=== PATIENT | female | born 1950 | race Caucasian/White ===

== ENCOUNTER 2023-09-26 07:00 | Outpatient (OUT) | payer MEDICARE, SELFPAY ==
[2023-09-26 07:31] LABS: Basophils Percent Auto 0.5 % (0.2-2.0); Eosinophils Absolute Auto 0.1 10^3/uL (0.0-0.7); Eosinophils Percent Auto 1.5 % (0.9-7.0); Hematocrit 42.2 % (36.0-48.0); Hemoglobin 13.8 g/dL (12.0-16.0); Immature Granulocytes Abs Auto 0.02 10^3/uL (0.00-0.03); Immature Granulocytes Pct Auto 0.3 % (0.0-0.5); Lymphocytes Absolute Auto 2.6 10^3/uL (1.2-3.8); Lymphocytes Percent Auto 34.3 % (20.5-60.0); Mean Corpuscular HGB Conc 32.7 g/dL (29.9-35.2); Mean Corpuscular Hemoglobin 29.9 pg (26.7-34.0); Mean Corpuscular Volume 91.3 fL (81.0-99.0); Mean Platelet Volume 8.7 fL (9.5-13.5); Monocytes Absolute Auto 0.5 10^3/uL (0.3-0.8); Monocytes Percent Auto 7.1 % (1.7-12.0); Neutrophils Absolute Auto 4.3 10^3/uL (1.4-6.5); Neutrophils Percent Auto 56.3 % (43.0-75.0); Platelet Count 219 10^3/uL (150-450); Red Blood Count 4.62 10^6/uL (4.20-5.40); Red Cell Distribution Width 13.4 % (11.0-15.0); White Blood Count 7.6 10^3/uL (4.0-11.0)
[2023-09-26 08:07] LABS: Estimated Average Glucose 123 mg/dL; Glycohemoglobin A1C 5.9 % (4.5-6.2)
[2023-09-26 08:24] LABS: Alanine Aminotransferase 34 U/L (14-59); Albumin Globulin Ratio 0.9; Albumin Level 3.7 g/dL (3.4-5.0); Alkaline Phosphatase 80 U/L (46-116); Anion Gap 16.5; Aspartate Amino Transferase 29 U/L (15-37); BUN Creatinine Ratio 20.2; Bilirubin Total 0.8 mg/dL (0.2-1.0); Calcium 9.4 mg/dL (8.5-10.1); Carbon Dioxide 26.4 mmol/L (21.0-32.0); Chloride 102 mmol/L (98-107); Cholesterol 178 mg/dL (<=200); Estimated GFR (African America >60 (>=60); Estimated GFR (Non-African Ame >60 (>=60); Free T3 2.62 pg/mL (2.18-3.98); Glucose 81 mg/dL (74-106); HDL Cholesterol 90 mg/dL (40-60); Potassium 3.9 mmol/L (3.5-5.1); Sodium 141 mmol/L (136-145); Thyroid Stimulating Hormone 3.683 uIU/mL (0.358-3.740); Total Protein 7.7 g/dL (6.4-8.2); Triglycerides 49 mg/dL (<=150); VLDL CHOLESTEROL 9.8 mg/dL
== END 2023-09-26 07:01 | disposition home or self-care (01) ==
LOC: LAB 07:00
PROVIDERS: PCP Family Medicine; Visit Provider Family Medicine
DX: E03.0 Congenital hypothyroidism with diffuse goiter (principal); F41.9 Anxiety disorder, unspecified; E78.5 Hyperlipidemia, unspecified; R73.09 Other abnormal glucose; Z12.12 Encounter for screening for malignant neoplasm of rectum; D64.9 Anemia, unspecified; E55.9 Vitamin D deficiency, unspecified
CPT/HCPCS: 36415; 80053; 80061; 82306; 83036; 83540; 84436; 84443; 84481; 85025

== ENCOUNTER 2024-10-06 08:26 | Outpatient (OUT) | payer MEDICARE, SELFPAY ==
[2024-10-06 08:57] LABS: Basophils Percent Auto 0.3 % (0.2-2.0); Eosinophils Absolute Auto 0.1 10^3/uL (0.0-0.7); Eosinophils Percent Auto 1.5 % (0.9-7.0); Hematocrit 43.8 % (36.0-48.0); Hemoglobin 14.6 g/dL (12.0-16.0); Immature Granulocytes Abs Auto 0.02 10^3/uL (0.00-0.03); Immature Granulocytes Pct Auto 0.3 % (0.0-0.5); Lymphocytes Absolute Auto 2.7 10^3/uL (1.2-3.8); Lymphocytes Percent Auto 39.9 % (20.5-60.0); Mean Corpuscular HGB Conc 33.3 g/dL (29.9-35.2); Mean Corpuscular Hemoglobin 30.1 pg (26.7-34.0); Mean Corpuscular Volume 90.3 fL (81.0-99.0); Mean Platelet Volume 8.7 fL (9.5-13.5); Monocytes Absolute Auto 0.4 10^3/uL (0.3-0.8); Monocytes Percent Auto 6.4 % (1.7-12.0); Neutrophils Absolute Auto 3.5 10^3/uL (1.4-6.5); Neutrophils Percent Auto 51.6 % (43.0-75.0); Platelet Count 212 10^3/uL (150-450); Red Blood Count 4.85 10^6/uL (4.20-5.40); Red Cell Distribution Width 12.9 % (11.0-15.0); White Blood Count 6.7 10^3/uL (4.0-11.0)
[2024-10-06 09:05] LABS: Estimated Average Glucose 120 mg/dL; Glycohemoglobin A1C 5.8 % (4.5-6.2)
[2024-10-06 09:40] LABS: Alanine Aminotransferase 29 U/L (14-59); Albumin Globulin Ratio 0.9; Albumin Level 3.6 g/dL (3.4-5.0); Alkaline Phosphatase 79 U/L (46-116); Anion Gap 12.9; Aspartate Amino Transferase 26 U/L (15-37); BUN Creatinine Ratio 15.9; Bilirubin Total 0.7 mg/dL (0.2-1.0); Calcium 9.7 mg/dL (8.5-10.1); Carbon Dioxide 28.2 mmol/L (21.0-32.0); Chloride 103 mmol/L (98-107); Chol HDL Ratio 2.1; Cholesterol 184 mg/dL (<=200); Estimated GFR (African America >60 (>=60 mL/min/1.73m^2); Estimated GFR (Non-African Ame >60 (>=60 mL/min/1.73m^2); Free T3 2.41 pg/mL (2.18-3.98); Globulin 3.8 g/dL; Glucose 90 mg/dL (74-106); HDL Cholesterol 86 mg/dL (40-60); Potassium 4.1 mmol/L (3.5-5.1); Sodium 140 mmol/L (136-145); Thyroid Stimulating Hormone 3.633 uIU/mL (0.358-3.740); Total Protein 7.4 g/dL (6.4-8.2); Triglycerides 113 mg/dL (<=150); VLDL CHOLESTEROL 22.6 mg/dL
== END 2024-10-06 08:27 | disposition home or self-care (01) ==
LOC: LAB 08:26
PROVIDERS: PCP Family Medicine; Visit Provider Family Medicine
DX: R53.83 Other fatigue (principal); R03.0 Elevated blood-pressure reading, without diagnosis of hypertension; F41.9 Anxiety disorder, unspecified; E78.5 Hyperlipidemia, unspecified; R73.09 Other abnormal glucose; I10 Essential (primary) hypertension; Z12.12 Encounter for screening for malignant neoplasm of rectum; E03.9 Hypothyroidism, unspecified
CPT/HCPCS: 36415; 80053; 80061; 83036; 84436; 84443; 84481; 85025; G0103

== ENCOUNTER 2025-09-30 07:53 | Outpatient (OUT) | payer MEDICARE, SELFPAY ==
--- OUTSIDE RECORDS SUMMARY | 2025-09-30 07:58 | XMS_ITS | CCD ---
Author Organization [facility] Care Team Providers Care Bar Host/Hostess Name Role Phone DR JORGE OQUENDO Attending Unavailable DR JORGE OQUENDO Consulting Unavailable DR JORGE OQUENDO Primary Care Unavailable DR JORGE OQUENDO Admitting Unavailable Problems Problem ClassificationProblemDateDocumented DateEpisodic/ChronicDeficiency and other anemia (1 source)Anemia, unspecified; Translations: [ANEMIA UNSPECIFIED]Onset: 21-39-9438LmwsxnxiAzpaxqhg mellitus without complication (1 source)Other abnormal glucose; Translations: [OTHER ABNORMAL GLUCOSE]Onset: 38-62-4571ZzxskyfpRkaaeyjkj of lipid metabolism (2 sources)Elevated Lipoprotein(a); Translations: [Hyperlipidemia, unspecified] Onset: 71-80-4807YeckhjyHkcvsyign hypertension (4 sources)Essential (primary) hypertension; Translations: [ESSENTIAL PRIMARY HYPERTENSION]Onset: 42-24-6774GytkewwPqsyzuv and fatigue (1 source)Other fatigue; Translations: [OTHER FATIGUE]Onset: 27-81-1941Akujejbn Other screening for suspected conditions (not mental disorders or infectious disease) (1 source)Encounter for screening for malignant neoplasm of rectum; Translations: [ENC SCREEN MALIG NEOPLASM RECTUM]Onset: 55-49-0627Vqamyfty Results Test NameValueInterpretationReference RangeFacilityINSULINon 87-06-2139Zzoiuvf 6.8 uIU/mLNormal2.6-24.9The [facility] HospitalComment on above:Performed By: #### INSULIN #### [facility] [address] [address] [address] Angel Shea AUTO DIFFon [id number] #0.0 103/ulNormal0.0-0.1The [facility] HospitalComment on above:Performed By: #### CBC #### [facility] [address] [address] [address] Angel SalomonBasophils/100 WBC (Bld)0.3 %Normal0.2-2.0The [facility] Comment on above:Performed By: #### CBC #### [facility] [address] [place] [address] Dr. Angel Georges #0.1 103/ulNormal0.0-0.7The [facility] HospitalComment on above: Performed By: #### CBC #### [facility] [address] [place] [address] Dr. Angel Garciaosinophils/100 WBC (Bld)1.6 %Normal0.9-7.0The [facility] Comment on above:Performed By: #### CBC #### [facility] [address] [place] [address] Dr. Angel Garciarythrocyte distribution width (RBC) [Ratio]12.8 %Pqlfaf98.0-15.0 The [facility] HospitalComment on above:Performed By: #### CBC #### [facility] [address] [place] [address] Dr. Angel SalomonHematocrit (Bld) [Volume fraction]40.7 %Rgnhcw82.0-48.0The [facility] HospitalComment on above:Performed By: #### CBC #### [facility] [address] [place] [address] Dr. Angel SalomonHemoglobin (Bld) [Mass/Vol]13.7 g/oIHnilht37.0-16.0The [facility] HospitalComment on above:Performed By: #### CBC #### [facility] [address] [place] [address] Dr. Angel Steven #0.01 10e3/ulNormal0.00-0.03The [facility] HospitalComment on above:Performed By: #### CBC #### [facility] [address] [place] [address] Dr. Angel Steven %0.1 %Normal0.0-0.5The [facility] HospitalComment on above: Performed By: #### CBC #### [facility] [address] [address] [address] Angel Pickard #2.9 103/ulNormal1.2-3.8The [facility] HospitalComment on above:Performed By: #### CBC #### [facility] [address] [place] [address] Dr. Angel Reidhocytes/100 WBC (Bld)43.7 %Agkrml20.5-60.0The [facility] HospitalComment on above:Performed By: #### CBC #### [facility] [address] [place] [address] Dr. Angel Us DIFF REQNONormalThe [facility]S HospitalComment on above: Performed By: #### CBC #### [facility] [address] [place] [address] Dr. Angel Payne (RBC) [Entitic mass]30.4 jmLoiwoy00.7-34.0The [facility] HospitalComment on above:Performed By: #### CBC #### [facility] [address] [place] [address] Dr. Angel Gramajo (RBC) [Mass/Vol]33.7 g/jMCsffqi32.9-35.2The [facility] Hospitalment on above:Performed By: #### CBC #### [facility] [address] [place] [address] Dr. Angel Gramajo (RBC) [Entitic vol]90.4 aHVmwzje71.0-99.0The [facility] HospitalComment on above:Performed By: #### CBC #### [facility] [address] [place] [address] Dr. Angel Friend #0.4 103/ulNormal0.3-0.8The [facility] HospitalComment on above:Performed By: #### CBC #### [facility] [address] [place] [address] Dr. Angel Covarrubiasocytes/100 WBC (Bld)6.1 %Normal1.7-12.0The [facility] Comment on above:Performed By: #### CBC #### [facility] [address] [address] [address] Angel Oliveira #3.2 103/ulNormal1.4-6.5The [facility] HospitalComment on above:Performed By: #### CBC #### [facility] [address] [address] [address] Angel Dumontutrophils/100 WBC (Bld)48.2 %Kvanvd81.0-75.0The [facility] HospitalComment on above:Performed By: #### CBC #### [facility] [address] [address] [address] Angel Mccordlet mean volume (Bld) [Entitic vol]8.6 fLCritically low 9.5-13.5The [facility] HospitalComment on above:Performed By: #### CBC #### [facility] [address] [address] [address] Angel FabianT206 103/neIqofso442-659Alh [facility] HospitalComment on above: Performed By: #### CBC #### [facility] [address] [address] [address] Angel SalomonRBC4.50 106/ulNormal4.20-5.40The [facility] Hospitalment on above:Performed By: #### CBC #### [facility] [address] [address] [address] Angel SalomonWBC6.7 103/ulNormal4.0-11.0The [facility] HospitalComment on above: Performed By: #### CBC #### [facility] [address] [place] [address] Dr. Angel Damian THYROXINE INDEX T7on 95-08-4619KKG0.34Imyvtc8.30-4.50The [facility] HospitalComment on above:Performed By: #### T7, CMP, LIPID, TSH #### [facility] [address] [address] [address] Angel SalomonT3U31.0 %Uoothx06.0-39.0The [facility] HospitalComment on above: Performed By: #### T7, CMP, LIPID, TSH #### [facility] [address] [address] [address] Angel SalomonT4 [Mass/Vol]7.90 ug/dLNormal4.80-13.90The [facility] Comment on above:Performed By: #### T7, CMP, LIPID, TSH #### [facility] [address] [place] [address] Dr. Angel SalomonGLYCOHEMOGLOBIN A1Con 81-41-1356GIF RECOMMENDATIONSEE BELOWMercy Health Allen HospitalComment on above:Result Comment: ADA RECOMMENDED LIMIT 4.0 - 6.0 ADA THERAPEUTIC TARGET < 7.0 ACTION SUGGESTED > 7.0Performed By: #### A1C #### [facility] [address] [place] [address] Dr. Angel SalomonGlucose [Mass/Vol]131 mg/dLNoPaulding County HospitalComment on above:Performed By: #### A1C #### [facility] [address] [place] [address] Dr. Angel SalomonHbA1c (Bld) [Mass fraction]6.2 %Normal4.5-6.2The [facility] HospitalComment on above:Performed By: #### A1C #### [facility] [address] [place] [address] Dr. Angel Gallagher 60-10-8234Bwqu [Mass/Vol]126.0 ug/mEQdaeba20.0-170.0The [facility] HospitalComment on above:Performed By: #### IRON #### [facility] [address] [place] [address] Dr. Angel SalomonLIPID PROFILEon [id number]-HDL RATIO NORMSEE [facility] HospitalCommymichigan medical center alma on above:Result Comment: 3.3 - 4.4 LOW RISK 4.4 - 7.1 AVERAGE RISK 7.1 - 11.0 MODERATE RISK >11.0 HIGH RISKPerformed By: #### T7, CMP, LIPID, TSH #### [facility] [address] [address] [address] Angel Jimenezesterol [Mass/Vol]167 mg/dLNormal<=200[facility] Comment on above:Performed By: #### T7, CMP, LIPID, TSH #### [facility] [address] [address] [address] Angel Jimenezesterol in HDL [Mass/Vol]79 mg/dLCritically zydf70-54Hae [facility] HospitalComment on above:Performed By: #### T7, CMP, LIPID, TSH #### [facility] [address] [address] [address] Angel Jimenezesterol in LDL [Mass/Vol]65.0 mg/dLNoPaulding County HospitalComment on above:Performed By: #### T7, CMP, LIPID, TSH #### [facility] [address] [place] [address] Dr. Angel Ayon.total/Cholesterol in HDL [Mass ratio]2.1 {ratio} NormalThe [facility]'S HospitalComment on above:Performed By: #### T7, CMP, LIPID, TSH #### [facility] [address] [address] [address] Angel Granados NORMAL> or = 60 mg/dl - LOW CARDIOVASCULAR RISK <40 mg/dl - HIGH CARDIOVASCULAR RISKSelect Medical Cleveland Clinic Rehabilitation Hospital, AvonComment on above:Performed By: #### T7, CMP, LIPID, TSH #### [facility] [address] [place] [address] Dr. Angel SalomonLDL CALC NORMALSEE BELOWNoPaulding County HospitalComment on above:Result Comment: <100 mg/dl OPTIMAL 100 - 129 mg/dl NEAR OR ABOVE OPTIMAL 130 - 159 mg/dl BORDERLINE HIGH 160 - 189 mg/dl HIGH >190 mg/dl VERY HIGH Performed By: #### T7, CMP, LIPID, TSH #### [facility] [address] [place] [address] Dr. Angel SalomonTriglyceride [Mass/Vol]115 mg/dLNormal<=150[facility] Comment on above:Performed By: #### T7, CMP, LIPID, TSH #### [facility] [address] [address] [address] Angel SalomonVLDL CALC23.0 mg/dLNormalThe [facility]S HospitalComment on above: Performed By: #### T7, CMP, LIPID, TSH #### [facility] [address] [address] [address] Angel Merrill 14(COMP METB)on 70-78-6068Xihzjrc [Mass/Vol]3.6 g/dLNormal 3.4-5.0The [facility] HospitalComment on above:Performed By: #### T7, CMP, LIPID, TSH #### [facility] [address] [address] [address] Angel SalomonAlbumin/Globulin [Mass ratio]0.9 {ratio}NormalThe [facility]'S HospitalComment on above:Performed By: #### T7, CMP, LIPID, TSH #### [facility] [address] [place] [address] Dr. Angel Martel [Catalytic activity/Vol]82 U/TCtphko66-454Rnq [facility] HospitalComment on above:Performed By: #### T7, CMP, LIPID, TSH #### [facility] [address] [place] [address] Dr. Angel Sanchez [Catalytic activity/Vol]43 U/EWlvlke25-24Vls [facility] HospitalComment on above:Performed By: #### T7, CMP, LIPID, TSH #### [facility] [address] [place] [address] Dr. Angel Cai gap [Moles/Vol]11.4 mmol/LNormalThe [facility] on above:Performed By: #### T7, CMP, LIPID, TSH #### [facility] [address] [place] [address] Dr. Angel Soriano [Catalytic activity/Vol]31 U/LFjzafz25-61Bcv [facility] Hospitalment on above:Performed By: #### T7, CMP, LIPID, TSH #### [facility] [address] [place] [address] Dr. Yilan ChangBilirubin [Mass/Vol]0.5 mg/dLNormal0.2-1.0The [facility] Comment on above:Performed By: #### T7, CMP, LIPID, TSH #### [facility] [address] [address] [address] Angel SalomonCalcium [Mass/Vol]9.5 mg/dLNormal8.5-10.1The [facility] Comment on above:Performed By: #### T7, CMP, LIPID, TSH #### [facility] [address] [place] [address] Dr. Angel SalomonChloride [Moles/Vol]103 mmol/UTjuqqv92-020VvcSelect Medical Specialty [facility] Comment on above:Performed By: #### T7, CMP, LIPID, TSH #### [facility] [address] [place] [address] Dr. Angel SalomonCO2 [Moles/Vol]29.4 mmol/FYqdzzm67.0-32.0The [facility] Comment on above:Performed By: #### T7, CMP, LIPID, TSH #### [facility] [address] [place] [address] Dr. Angel SalomonCreatinine [Mass/Vol]0.75 mg/dLNormal0.55-1.02The [facility] HospitalComment on above:Performed By: #### T7, CMP, LIPID, TSH #### [facility] [address] [place] [address] Dr. Angel GarciaGFR-AF SENEGALESE>60Normal>=60The [facility] HospitalComment on above:Performed By: #### T7, CMP, LIPID, TSH #### [facility] [address] [place] [address] Dr. Angel GarciaGFR-NON AF SENEGALESE>60Normal>=60The [facility] HospitalComment on above:Performed By: #### T7, CMP, LIPID, TSH #### [facility] [address] [place] [address] Dr. Angel SalomonGlobulin (S) [Mass/Vol]3.9 g/dLNormalThe [facility] HospitalComment on above:Performed By: #### T7, CMP, LIPID, TSH #### [facility] [address] [place] [address] Dr. Angel SalomonGlucose [Mass/Vol]97 mg/qDPmzanw41-007Aob [facility] Comment on above:Performed By: #### T7, CMP, LIPID, TSH #### [facility] [address] [place] [address] Dr. Angel SalomonPotassium [Moles/Vol]3.8 mmol/LNormal3.5-5.1The [facility] Comment on above:Performed By: #### T7, CMP, LIPID, TSH #### [facility] [address] [place] [address] Dr. Angel SalomonProtein [Mass/Vol]7.5 g/dLNormal6.4-8.2The [facility] Comment on above:Performed By: #### T7, CMP, LIPID, TSH #### [facility] [address] [place] [address] Dr. Angel SalomonSodium [Moles/Vol]140 mmol/AJhfrrd369-221Pys [facility] Comment on above:Performed By: #### T7, CMP, LIPID, TSH #### [facility] [address] [place] [address] Dr. Angel SalomonUrea nitrogen [Mass/Vol]15.0 mg/dLNormal7.0-18.0[facility] - CantonComment on above:Performed By: #### T7, CMP, LIPID, TSH #### [facility] [address] [place] [address] Dr. Angel SalomonUrea nitrogen/Creatinine [Mass ratio]20.0 mg/mgNormalThe [facility] HospitalComment on above:Performed By: #### T7, CMP, LIPID, TSH #### [facility] [address] [place] [address] Dr. Angel Workman 82-53-1713OAD4.746 uIU/mLCritically high0.358-3.740[facility] - CantonComment on above:Performed By: #### T7, CMP, LIPID, TSH #### [facility] [address] [place], [place] [address] Dr. Angel Salomon Encounters Encounter DateEncounter TypeCare ProviderFacilityStart: 09-30-2022 End: 18-89-9701pgvtptlmpyVT JORGE HOYFacility:H1 Payers DatePayer CategoryPayerPolicy [id number] Summary Purpose Family History No Family History Records Found Advance Directives No Advanced Directives Records Found Additional Source Comments INFORMATION SOURCE (unrecogn ized section and content) DATE CREATED AUTHOR 10/11/2022 [facility] FOR RECORDS PERTAINING TO PATIENTS WHO ARE OR HAVE BEEN ENROLLED IN A CHEMICAL DEPENDENCY/SUBSTANCEABUSE PROGRAM, SOME INFORMATION MAY BE OMITTED. This clinical summary was aggregated from multiple sources. Caution should be exercised in using it in the provision of clinical care. This summary normalizes information from multiple sources, and as a consequence, information in this document may materially change the coding, format and clinical context of patient data. In addition, data may be omitted in some cases. CLINICAL DECISIONS SHOULD BE BASED ON THE PRIMARY CLINICAL RECORDS. [employer] provides no warranty or guarantee of the accuracy or completeness of information in this document.
[2025-09-30 08:30] LABS: Hematocrit 42.8 % (36.0-48.0); Hemoglobin 14.2 g/dL (12.0-16.0); Immature Granulocytes Abs Auto 0.01 10^3/uL (0.00-0.03); Immature Granulocytes Pct Auto 0.1 % (0.0-0.5); Lymphocytes Absolute Auto 2.5 10^3/uL (1.2-3.8); Mean Corpuscular HGB Conc 33.2 g/dL (29.9-35.2); Mean Corpuscular Hemoglobin 30.1 pg (26.7-34.0); Mean Corpuscular Volume 90.9 fL (81.0-99.0); Platelet Count 202 10^3/uL (150-450); Red Blood Count 4.71 10^6/uL (4.20-5.40); White Blood Count 7.9 10^3/uL (4.0-11.0)
[2025-09-30 09:16] LABS: Alanine Aminotransferase 43 U/L (14-59); Albumin Globulin Ratio 0.9; Albumin Level 3.6 g/dL (3.4-5.0); Alkaline Phosphatase 85 U/L (46-116); Anion Gap 12.8; Aspartate Amino Transferase 26 U/L (15-37); Blood Urea Nitrogen 15.0 mg/dL (7.0-18.0); Calcium 9.5 mg/dL (8.5-10.1); Carbon Dioxide 29.2 mmol/L (21.0-32.0); Chloride 103 mmol/L (98-107); Cholesterol 189 mg/dL (<=200); Estimated GFR (African America >60 (>=60 mL/min/1.73m^2); Estimated GFR (Non-African Ame 59 (>=60 mL/min/1.73m^2); Free T3 2.15 pg/mL (2.18-3.98); Globulin 3.9 g/dL; Glucose 95 mg/dL (74-106); HDL Cholesterol 81 mg/dL (40-60); Potassium 4.0 mmol/L (3.5-5.1); Sodium 141 mmol/L (136-145); Thyroid Stimulating Hormone 3.839 uIU/mL (0.358-3.740); Total Protein 7.5 g/dL (6.4-8.2); Triglycerides 102 mg/dL (<=150); VLDL CHOLESTEROL 20.4 mg/dL
[2025-09-30 09:30] LABS: Iron 65.0 ug/dL (50.0-170.0)
== END 2025-09-30 07:54 | disposition home or self-care (01) ==
LOC: LAB 07:56
PROVIDERS: PCP Family Medicine; Visit Provider Family Medicine
DX: D64.9 Anemia, unspecified (principal); R03.0 Elevated blood-pressure reading, without diagnosis of hypertension; E78.89 Other lipoprotein metabolism disorders; F41.9 Anxiety disorder, unspecified; F10.11 Alcohol abuse, in remission; E78.5 Hyperlipidemia, unspecified; R73.09 Other abnormal glucose; Z12.12 Encounter for screening for malignant neoplasm of rectum; E03.9 Hypothyroidism, unspecified; E55.9 Vitamin D deficiency, unspecified; I10 Essential (primary) hypertension; D50.9 Iron deficiency anemia, unspecified
CPT/HCPCS: 36415; 80053; 80061; 82306; 83036; 83540; 84436; 84443; 84481; 85025

== ENCOUNTER 2025-10-04 09:39 | Outpatient (REF) | payer MEDICARE, SELFPAY ==
--- OUTSIDE RECORDS SUMMARY | 2025-10-01 11:54 | XMS_ITS ---
Author Organization [facility] [place] Address [address] [place] [address] Care Team Providers Care Marketing Planning Manager Name Role Phone Jose Juan Watson Primary Care Provider [phone] REASON FOR VISIT Lab Results Medications Medication SIG (Take, Route, Frequency, Duration) Notes Start Date End Date Status Cytomel 5 MCG 1 tablet on an empty stomach Orally Once a day; Duration: 30 day(s) 5Active Encounters Encounter Location Date Provider Diagnosis [facility] [address] [place] [address] 10/01/2025 Jose Juan Watson Abnormal thyroid blo od test R94.6 Assessments Encounter Date Diagnosis (ICD Code) Assessment Notes Treatment Notes Treatment Clinical Notes Section Notes 10/01/2025 Abnormal thyroid blood test (ICD -10 - R94.6) Plan Of Treatment Medication Medication Name Sig Start Date Stop Date Notes Cytomel 5 MCG 1 tablet on an empty stomach Orally Once a day; Duration: 30 day(s) 10/03/2025 Pending Test Test Name Order Date THYROID PANEL (T4/TSH/FREE T3) Progress Notes * Alexia AGUIAR ADOB:1950 (75 yo F)Acc No.[id number]:10/01/2025 Patient:?Alexia AGUIAR :1950???Age:75 Y???Sex:FemalePhone:[phone] Address:[address] [place] [id number] * Refills Start Cytomel Tablet, 5 MCG, Orally, 30, 1 tablet on an empty stomach, Once a day, 30 day(s) Subjective: * Chief Complaints: * L ab Results * Medical History: * Surgical History: * Hospitalization/Major Diagno stic Procedure: * Medications: Objective: * Vitals: * Physical Examination: ??? Assessment: * Assessment: 1.?Abnormal thyroid blood test - R94.6 (Primary)??? Plan: * Treatment: ?LAB: THYROID PANEL (T4/TSH/FREE T3)2.?Others? Start Cytomel Tablet, 5 MCG, 1 tablet on an empty stomach, Orally, Once a day, 30 day(s), 30.? * Procedure Codes: * true * Date:?Generated for Printing/Faxing/eTransmitting on:?10/05/2025 09:43 AM EST
--- OUTSIDE RECORDS SUMMARY | 2025-10-05 09:43 | XMS_ITS | Patient Health Record ---
Author Organization [facility] [place] Address [address] [place] [address] Care Team Providers Care Build And Release Manager Name Role Phone Jose Juan Watson Primary Care Provider Allergies Allergen (clinical drug ingredient) Drug/Non Drug Allergy documented on EMR Reaction Allergy Type Onset Date Status AlcoholUnknownDrug AllergyActivePenicillinUnknownDrug AllergyActive Results Component Value Reference Range Notes GLYCOHEMOGLOBIN A1C Reviewed date:10/01/2025 04:55:36 PM Interpretation: Performing Lab: Notes/Report: [facility] , Glycohemoglobin A1C 5.8 4.5-6.2 % ADA RECOMMENDED LIMIT 4.0 - 6.0 ADA THERAPEUTIC TARGET < 7.0 ACTION SUGGESTED > 7.0 Estimated Average Glucose 120 Performing Lab:see noteML - [facility] LBIRON Reviewed date:10/01/2025 04:55:36 PM Interpretation: Performing Lab: Notes/Report: [facility] ,Iron65.050.0-170.0 ug/dLPerforming Lab:see noteML - [facility] LBTSH Reviewed date:10/01/2025 04:55:36 PM Interpretation: Performing Lab: Notes/Report: [facility] ,Thyroid Stimulating Hormone3.8390.358-3.740 uIU/mLPerforming Lab:see note - [facility] LBVITAMIN D 25 [place] Reviewed date:10/01/2025 04:55:36 PM Interpretation: Performing Lab: Notes/Report: [facility] ,Vitamin D53.9 <20 ng/mL Vit D deficient 20-<30 ng/mL Vit D insufficient 30-100 ng/mL Vit D sufficient >100 ng/mL Potential Toxicity Performing Lab:see noteML - [facility] LBT4 Reviewed date:10/01/2025 04:55:36 PM Interpretation: Performing Lab: Notes/Report: [facility] ,T4 Thyroxine9.904.80-13.90 ug/dLPerforming Lab:see noteML - [facility] LBPROF 14(COMP METB) Reviewed date:10/01/2025 04:55:36 PM Interpretation: Performing Lab: Notes/Report: [facility] ,Ggfgcy068485-084 mmol/LPotassium4.03.5-5.1 mmol/TUgnyzxjj23514-041 mmol/LCarbon Pvsqgxy59.221.0-32.0 mmol/LAnion Gap12.7Gjowgso1814-109 mg/dLBlood Urea Nitrogen 15.07.0-18.0 mg/dLCreatinine0.930.55-1.02 mg/dLEstimated GFR ( Stefany>60 >=60 mL/min/1.73m 2Estimated GFR (Non- Ame59>=60 mL/min/1.73m 2BUN Creatinine Ratio16.1Gnosxdp2.58.5-10.1 mg/dLBilirubin Total0.80.2-1.0 mg/dL Aspartate Amino Owkfbljrovr9413-73 U/LAlanine Igdtdbemgnuhjwqx2425-27 U/L Alkaline Bhbtvbukckl1289-160 U/LTotal Protein7.56.4-8.2 g/dLAlbumin Level3.63.4- 5.0 g/dLGlobulin3.9Albumin Globulin Ratio0.9Performing Lab:see noteML - [facility] LBLIPID PROFILE Reviewed date:10/01/2025 04:55:36 PM Interpretation: Performing Lab: Notes/Report: [facility] ,Qvbmwvwrvegmb462<=150 mg/uPRcmzlryfxtt965<=200 mg/dLHDL Bdlbamhkbxj2382-74 mg/dL > or =60 mg/dl - LOW CARDIOVASCULAR RISK <40 mg/dl - HIGH CARDIOVASCULAR RISK LDL Cholesterol Lftdahhrqw54.0 <100 mg/dl OPTIMAL 100-129 mg/dl NEAR OR ABOVE OPTIMAL 130-159 mg/dl BORDERLINE HIGH 160-189 mg/dl HIGH >190 mg/dl VERY HIGH VLDL LMCCAXOZKYZ70.4Chol HDL Ratio2.3 3.3 - 4.4 LOW RISK 4.4 - 7.1 AVERAGE RISK 7.1 - 11.0 MODERATE RISK >11.0 HIGH RISK Performing Lab:see noteML - [facility] LBFREE T3 Reviewed date:10/01/2025 04:55:36 PM Interpretation: Performing Lab: Notes/Report: [facility] ,Free T32.152.18-3.98 pg/mLPerforming Lab:see noteML - [facility] LB CBC AUTO DIFF Reviewed date:10/01/2025 04:55:36 PM Interpretation: Performing Lab: Notes/Report: [facility] ,White Blood Count7.94.0-11.0 10 3/uLRed Blood Count4.714.20-5.40 10 6/uL Uuwunkwuze77.212.0-16.0 g/oUCqcspptctf10.836.0-48.0 %Mean Corpuscular Foprgz50.9 81.0-99.0 fLMean Corpuscular Qpqlewgipg57.126.7-34.0 pgMean Corpuscular HGB Conc 33.229.9-35.2 g/dLRed Cell Distribution Width13.211.0-15.0 %Platelet Efwwl076 150-450 10 3/uLMean Platelet Volume8.79.5-13.5 fLNeutrophils Percent Auto59.5 43.0-75.0 %Lymphocytes Percent Auto31.420.5-60.0 %Monocytes Percent Auto7.11.7- 12.0 %Eosinophils Percent Auto1.50.9-7.0 %Basophils Percent Auto0.40.2-2.0 % Immature Granulocytes Pct Auto0.10.0-0.5 %Neutrophils Absolute Auto4.71.4-6.5 10 3/uLLymphocytes Absolute Auto2.51.2-3.8 10 3/uLMonocytes Absolute Auto0.60.3-0.8 10 3/uLEosinophils Absolute Auto0.10.0-0.7 10 3/uLBasophils Absolute Auto0.00.0- 0.1 10 3/uLImmature Granulocytes Abs Auto0.010.00-0.03 10 3/uLPerforming Lab:see noteML - [facility] LBTSH Reviewed date:10/06/2024 04:06:26 PM Interpretation: Performing Lab: Notes/Report: [facility] ,Thyroid Stimulating Hormone3.6330.358-3.740 uIU/mLPerforming Lab:see noteML - [facility] LBT4 Reviewed date:10/06/2024 04:06:26 PM Interpretation: Performing Lab: Notes/Report: [facility] ,T4 Thyroxine8.704.80-13.90 ug/dLPerforming Lab:see noteML - [facility] LBPROF 14(COMP METB) Reviewed date:10/06/2024 04:06:26 PM Interpretation: Performing Lab: Notes/Report: [facility] ,Ddymng204363-157 mmol/LPotassium4.13.5-5.1 mmol/VEsouqiql85596-249 mmol/LCarbon Efdyhxk43.221.0-32.0 mmol/LAnion Gap12.7Imkiold6439-623 mg/dLBlood Urea Nitrogen 14.07.0-18.0 mg/dLCreatinine0.880.55-1.02 mg/dLEstimated GFR ( Stefany>60 >=60 mL/min/1.73m 2Estimated GFR (Non- Dahlia>60>=60 mL/min/1.73m 2BUN Creatinine Ratio15.3Arijkhy8.78.5-10.1 mg/dLBilirubin Total0.70.2-1.0 mg/dL Aspartate Amino Acahuyaajmp6389-67 U/LAlanine Kalwhvlapypdvbff1494-85 U/L Alkaline Vbhwvlxfopl4577-507 U/LTotal Protein7.46.4-8.2 g/dLAlbumin Level3.63.4- 5.0 g/dLGlobulin3.8Albumin Globulin Ratio0.9Performing Lab:see noteML - [facility] LBLIPID PROFILE Reviewed date:10/06/2024 04:06:26 PM Interpretation: Performing Lab: Notes/Report: [facility] ,Jnznntsvatrns817<=150 mg/tJFbnwxxhswoj258<=200 mg/dLHDL Bcvogwaxkvj9371-73 mg/dL > or =60 mg/dl - LOW CARDIOVASCULAR RISK <40 mg/dl - HIGH CARDIOVASCULAR RISK LDL Cholesterol Pzqukomqet58.0 <100 mg/dl OPTIMAL 100-129 mg/dl NEAR OR ABOVE OPTIMAL 130-159 mg/dl BORDERLINE HIGH 160-189 mg/dl HIGH >190 mg/dl VERY HIGH VLDL LAFFRWOWPXP35.6Chol HDL Ratio2.1 3.3 - 4.4 LOW RISK 4.4 - 7.1 AVERAGE RISK 7.1 - 11.0 MODERATE RISK >11.0 HIGH RISK Performing Lab:see noteML - [facility] LBGLYCOHEMOGLOBIN A1C Reviewed date:10/06/2024 04:06:26 PM Interpretation: Performing Lab: Notes/Report: [facility] ,Glycohemoglobin A1C5.84.5-6.2 % ADA RECOMMENDED LIMIT 4.0 - 6.0 ADA THERAPEUTIC TARGET < 7.0 ACTION SUGGESTED > 7.0 Estimated Average Opvxwao444Mbmbhgftjc Lab[facility] T3 Reviewed date:10/06/2024 04:06:26 PM Interpretation: Performing Lab: Notes/Report: [facility] ,Free T32.412.18-3.98 pg/mLPerforming Lab:see [facility] LB CBC AUTO DIFF Reviewed date:10/06/2024 04:06:26 PM Interpretation: Performing Lab: Notes/Report: [facility] ,White Blood Count6.74.0-11.0 10 3/uLRed Blood Count4.854.20-5.40 10 6/uL Juvjfepjsr83.612.0-16.0 g/dNLcxshxhlvw16.836.0-48.0 %Mean Corpuscular Hrmezo35.3 81.0-99.0 fLMean Corpuscular Qqggljgezc31.126.7-34.0 pgMean Corpuscular HGB Conc 33.329.9-35.2 g/dLRed Cell Distribution Width12.911.0-15.0 %Platelet Flzgy095 150-450 10 3/uLMean Platelet Volume8.79.5-13.5 fLNeutrophils Percent Auto51.6 43.0-75.0 %Lymphocytes Percent Auto39.920.5-60.0 %Monocytes Percent Auto6.41.7- 12.0 %Eosinophils Percent Auto1.50.9-7.0 %Basophils Percent Auto0.30.2-2.0 % Immature Granulocytes Pct Auto0.30.0-0.5 %Neutrophils Absolute Auto3.51.4-6.5 10 3/uLLymphocytes Absolute Auto2.71.2-3.8 10 3/uLMonocytes Absolute Auto0.40.3-0.8 10 3/uLEosinophils Absolute Auto0.10.0-0.7 10 3/uLBasophils Absolute Auto0.00.0- 0.1 10 3/uLImmature Granulocytes Abs Auto0.020.00-0.03 10 3/uLPerforming Lab:see noteML - [facility] Reason For Referral No Information Medications Medication SIG (Take, Route, Frequency, Duration) Notes Start Date End Date Status Cytomel 5 MCG 1 tablet on an empty stomach Orally Once a day; Duration: 30 day(s) 5ActiveAtorvastatin Calcium 10 mgTAKE 1 TABLET BY MOUTH DAILY; Duration: 90Active Immunizations Vaccine Route Administration Date Status Comme nts Comirnaty Pfizer Syringe Pre -Filled 30 mcg/0.3 mL Unknown 07/15/2023 Administered Comirnaty Pfizer Syringe Pre-Filled 30 mcg/0.3 rFJmmengm08/06/2024Administered Flu, Fluad (04978) 65 yrs + High Dose Seasonal (5868-8028)Ofbwntz1807/04/2024 QhoxlybrendkIRHJ-NDQ-5 (COVID 19 Moderna - Booster 0.25mL)Romugsg8512/21/2020 XjmklisadpirFHDI-LQW-6 (COVID 19 Moderna - Booster 0.25mL)Fvszieo9201/18/2021 ZirdiuybwmwpATWY-UFO-4 (COVID 19 Moderna - Booster 0.25mL)Fdeajdx1208/22/2021 OkpocblnmxwnGGZR-GAS-0 (COVID 19 Moderna - Booster 0.25mL)Itarusx6102/08/2022 OqdzyfamjnsyQGOU-QHW-8 (COVID 19 Moderna Bivalent Booster 0.5mL)Unknown 2Administered Social History Tobacco Use: Social History Observation Description Date Details (start date - stop date) Former Smoker 06/20/1978 - 06/20/1990 Tobacco Control (Standard) Question Answer Notes Tobacco use: Former smoker When did you start smoking?06/20/1978When did you stop smoking?06/20/1990How long has it been since you last smoked?Greater than 10 yearsAdditional Findings: Tobacco wfb-jtqiRr-vewzb cigarette smoker (1-9/day)AUDIT-C (Standard) Question Answer Notes Did you have a drink containing alcohol in the p ast year? 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 [address] [place] [address] 08/31/2025 Jose Juan Watson Borderline hypertens ion R03.0 ; Elevated lipoprotein(a) E78.89 ; Anxiety F41.9 and History of alcohol abuse F10.[address] [facility] [address] [place] [address] 10/06/2024 Jose Juan Watson Impacted cerumen, bilateral H61.[address] [facility] [address] [place] [address] 10/06/2024 Jose Juan Watson [facility] [place] [address] 10/01/2025Doug HoyAbnormal thyroid blood test R94.6 Assessments Encounter Date Diagnosis (ICD Code) Assessment Notes Treatment Notes Treatment Clinical Notes Section Notes 10/06/2024 Impacted cerumen, bilateral (ICD -10 - H61.23) 08/31/2025orderline hypertension (ICD-10 - R03.0)08/31/2025Elevated lipoprotein(a) (ICD-10 - E78.89)10/01/2025bnormal thyroid blood test (ICD-10 - R94.6)08/31/2025nxiety (ICD-10 - F41.9)08/31/2025History of alcohol abuse (ICD- 10 - F10.11) Plan Of Treatment Pending Test Test Name Order Date CMP (COMPLETE METABOLIC PANEL) 3 CMP (COMPLETE METABOLIC PANEL) 4 HEMOGLOBIN A1C (GLYCO) 09/18/2023 HEMOGLOBIN A1C (GLYCO) 09/29/2024 HEMOGLOBIN A1C (GLYCO) 08/31/2025 IRON, TOTAL 08/31/2025 IRON, TOTAL 09/18/2023 LIPID PANEL (CHOL/TRIG/HDL/LDL) 09/18/20 23 LIPID PANEL (CHOL/TRIG/HDL/LDL) 09/29/20 24 LIPID PANEL (CHOL/TRIG/HDL/LDL) 08/31/20 25 CBC WITH DIFF (EXP 08/2025) 09/29/2024 CBC WITH DIFF (EXP 08/2025) 09/18/2023 VITAMIN D, 25 LEVEL (TOTAL) 09/18/2023 VITAMIN D, 25 LEVEL (TOTAL) 08/31/2025 MAMM Mammograms CAD 09/18/2023 PSA, TOTAL 09/29/2024 STOOL OCCULT BLOOD 09/29/2024 STOOL OCCULT BLOOD 09/18/2023 STOOL OCCULT BLOOD 08/31/2025 THYROID PANEL (T4/TSH/FREE T3) 5 THYROID PANEL (T4/TSH/FREE T3) 5 THYROID PANEL (T4/TSH/FREE T3) 3 THYROID PANEL (T4/TSH/FREE T3) 4 MM screening mammo BI 09/29/2024 CMP (COMP MET GREWAL) w/eGFR CKD-EPI 2024 CBC WITH DIFF 08/31/2025 Insurance Providers Payer Name Payer Address Payer Phone Subscriber Number Group Number Insured Name Patient Relationship to Insured Coverage Start Date Coverage End Date [employer] MEDICARE [address] [place] [address] [id number] [place] [employer] - patient is the insured Medical (General) History Medical History History ICD Code Over weight E66.3 Elevated lipoprotein(a) E78.89 Borderline hypertension R03.0 Well adult Z00.00 Anxiety F41.9 History of alcohol abuse F10.11 Surgical History Surgery Date(Month/Year) [facility]
== END 2025-10-04 09:40 | disposition home or self-care (01) ==
LOC: LAB 09:39
PROVIDERS: PCP Family Medicine; Visit Provider Family Medicine
DX: R03.0 Elevated blood-pressure reading, without diagnosis of hypertension (principal); E78.89 Other lipoprotein metabolism disorders; F41.9 Anxiety disorder, unspecified; F10.11 Alcohol abuse, in remission; E78.5 Hyperlipidemia, unspecified; R73.09 Other abnormal glucose; Z12.12 Encounter for screening for malignant neoplasm of rectum; D64.9 Anemia, unspecified; E03.9 Hypothyroidism, unspecified; E55.9 Vitamin D deficiency, unspecified; I10 Essential (primary) hypertension; D50.9 Iron deficiency anemia, unspecified
CPT/HCPCS: G0328